=== PATIENT | female | born 1970 | race Caucasian/White ===

== ENCOUNTER 2022-06-12 10:13 | Emergency (ER) | payer MEDICAID ==
[~2022-06-12] VITALS: Ht 177.8 cm; Wt 87.2 kg
[2022-06-12 10:32] LABS: BASOPHILS # (AUTO) 0.1 10^3/uL (0.0-0.1); BASOPHILS % (AUTO) 1 % (0-10); EOSINOPHILS # (AUTO) 0.1 10^3/uL (0.0-0.3); EOSINOPHILS % (AUTO) 1 % (0-10); HEMATOCRIT 44 % (35-52); HEMOGLOBIN 14.7 g/dL (11.5-16.0); LYMPHOCYTES # (AUTO) 1.9 10^3/uL (1.0-4.0); LYMPHOCYTES % (AUTO) 26 % (12-44); MEAN CORPUSCULAR HEMOGLOBIN 32 pg (25-34); MEAN CORPUSCULAR HGB CONC 34 g/dL (32-36); MEAN CORPUSCULAR VOLUME 94 fL (80-99); MEAN PLATELET VOLUME 9.4 fL (9.0-12.2); MONOCYTES # (AUTO) 0.5 10^3/uL (0.0-1.0); MONOCYTES % (AUTO) 6 % (0-12); NEUTROPHILS # (AUTO) 4.8 10^3/uL (1.8-7.8); NEUTROPHILS % (AUTO) 66 % (42-75); PLATELET COUNT 282 10^3/uL (130-400); WHITE BLOOD COUNT 7.3 10^3/uL (4.3-11.0)
[2022-06-12] MEDS ORDERED: FAMOTIDINE 20 MG (PEPCID) TABLET PO STA (10:32)
--- NOTE | 2022-06-12 10:35 | ED Chest Pain ---
General Chief Complaint: Chest Pain Stated Complaint: CHEST PAIN Source: patient Exam Limitations: no limitations History of Present Illness Date Seen by Provider: Jun 12, 2022 Time Seen by Provider: 10:15 Initial Comments 51-year-old female with past medical history of anxiety most notably coming in due to left-sided chest pain.'s been going on for 3 days, throbbing, constant. Has never had pain like this before. Denies any cardiac history, long history, and does not smoke. 6 years ago she did have a blood clot in her left leg while on control. She has since been off control and has never had a repeat blood clot. Denies any swelling in her legs. Does have some left groin pain for the past several days as well which feels somewhat similar to when she had a blood clot but does not have the same swelling that she did have before. She had some redness to her left groin area earlier in the linear area, but she states that it has since gone. Otherwise denying any cough, shortness of breath, fever, nausea, vomiting, diarrhea, weakness, numbness, or any other concerns. Allergies and Home Medications Allergies Coded Allergies: rivaroxaban (Verified Allergy, Unknown, 06/12/22) Patient Home Medication List Home Medication List Reviewed: Yes Review of Systems Review of Systems Constitutional: No fever EENTM: No Symptoms Reported Respiratory: No Symptoms Reported Cardiovascular: See HPI Gastrointestinal: No Symptoms Reported Genitourinary: No Symptoms Reported Musculoskeletal: see HPI Skin: no symptoms reported Psychiatric/Neurological: No Symptoms Reported Endocrine: No Symptoms Reported Hematologic/Lymphatic: No Symptoms Reported All Other Systems Reviewed Negative Unless Noted: Yes Past Lxhgkfg-Xfqgtc-Rdehhd Hx Patient Social History Tobacco Use?: No Substance use?: No Alcohol Use?: No Pt feels they are or have been: No Past Medical History Surgery/Hospitalization HX: DVT femoral vein (2017), mitral valve prolapse Surgeries: No Physical Exam Vital Signs Capillary Refill : Height, Weight, BMI Height: '" Weight: lbs. oz. kg; BMI Method: General Appearance: No Apparent Distress, WD/WN HEENT: PERRL/EOMI, Normal ENT Inspection, Pharynx Normal Neck: Full Range of Motion, Normal Inspection, Non Tender, Supple Respiratory: Chest Non Tender, Lungs Clear, Normal Breath Sounds, No Accessory Muscle Use, No Respiratory Distress Cardiovascular: Regular Rate, Rhythm, No Edema, Normal Peripheral Pulses Gastrointestinal: Normal Bowel Sounds, Non Tender, Soft; No Distended, No Guarding Extremity: Normal Capillary Refill, Normal Inspection, Normal Range of Motion, Non Tender, No Calf Tenderness, No Pedal Edema Neurologic/Psychiatric: Alert, No Motor/Sensory Deficits, Normal Mood/Affect Skin: Normal Color, Warm/Dry Lymphatic: No Adenopathy Progress/Results/Core Measures Results/Orders Lab Results Laboratory Tests Test 06/12/22 10:21 Range/Units White Blood Count 7.3 4.3-11.0 10^3/uL Red Blood Count 4.63 3.80-5.11 10^6/uL Hemoglobin 14.7 11.5-16.0 g/dL Hematocrit 44 35-52 % Mean Corpuscular Volume 94 80-99 fL Mean Corpuscular Hemoglobin 32 25-34 pg Mean Corpuscular Hemoglobin Concent 34 32-36 g/dL Red Cell Distribution Width 12.6 10.0-14.5 % Platelet Count 282 130-400 10^3/uL Mean Platelet Volume 9.4 9.0-12.2 fL Immature Granulocyte % (Auto) 0 % Neutrophils (%) (Auto) 66 42-75 % Lymphocytes (%) (Auto) 26 12-44 % Monocytes (%) (Auto) 6 0-12 % Eosinophils (%) (Auto) 1 0-10 % Basophils (%) (Auto) 1 0-10 % Neutrophils # (Auto) 4.8 1.8-7.8 10^3/uL Lymphocytes # (Auto) 1.9 1.0-4.0 10^3/uL Monocytes # (Auto) 0.5 0.0-1.0 10^3/uL Eosinophils # (Auto) 0.1 0.0-0.3 10^3/uL Basophils # (Auto) 0.1 0.0-0.1 10^3/uL Immature Granulocyte # (Auto) 0.0 0.0-0.1 10^3/uL Prothrombin Time 12.6 12.2-14.7 SEC INR Comment 0.9 0.8-1.4 Activated Partial Thromboplast Time 26 24-35 SEC D-Dimer 0.72 H 0.00-0.49 UG/ML Sodium Level 138 135-145 MMOL/L Potassium Level 3.8 3.6-5.0 MMOL/L Chloride Level 104 98-107 MMOL/L Carbon Dioxide Level 24 21-32 MMOL/L Anion Gap 10 5-14 MMOL/L Blood Urea Nitrogen 12 7-18 MG/DL Creatinine 0.88 0.60-1.30 MG/DL Estimat Glomerular Filtration Rate 79 BUN/Creatinine Ratio 14 Glucose Level 121 H 70-105 MG/DL Calcium Level 9.2 8.5-10.1 MG/DL Corrected Calcium 8.5-10.1 MG/DL Magnesium Level 1.9 1.6-2.4 MG/DL Total Bilirubin 0.5 0.1-1.0 MG/DL Aspartate Amino Transf (AST/SGOT) 12 5-34 U/L Alanine Aminotransferase (ALT/SGPT) 8 0-55 U/L Alkaline Phosphatase 61 40-136 U/L Troponin I < 0.30 <0.30 NG/ML Pro-B-Type Natriuretic Peptide 25.1 <125.0 PG/ML Total Protein 7.1 6.4-8.2 GM/DL Albumin 4.6 H 3.2-4.5 GM/DL My Orders Orders - JUNE RAYMUNDO MD Cbc With Automated Diff (06/12/22 10:26) Magnesium (06/12/22 10:26) Chest 1 View Ap/Pa Only (06/12/22 10:26) Ekg Tracing (06/12/22 10:26) Comprehensive Metabolic Panel (06/12/22 10:26) Protime With Inr (06/12/22 10:26) Partial Thromboplastin Time (06/12/22 10:26) O2 (06/12/22 10:26) Monitor-Rhythm Ecg Trace Only (06/12/22 10:26) Ed Iv/Invasive Line Start (06/12/22 10:26) Fibrin Degradation Products (06/12/22 10:26) Troponin I Fs (06/12/22 10:26) Probnp Fs (06/12/22 10:26) Lidocaine 2% Viscous 15 Ml (Xylocaine Vi (06/12/22 10:45) Famotidine Tablet (Pepcid Tablet) (06/12/22 10:32) Antacid Suspension (Mylanta Suspension (06/12/22 10:45) Aspirin Chewable Tablet (Baby Aspirin Ch (06/12/22 10:45) Prochlorperazine Injection (Compazine In (06/12/22 11:00) Diphenhydramine Injection (Benadryl Inje (06/12/22 11:00) Iohexol Injection (Omnipaque 350 Mg/Ml 1 (06/12/22 11:15) Received Contrast (Hold Metformin- Contr (06/12/22 11:15) Sodium Chloride Flush (Catheter Flush Sy (06/12/22 11:15) Ns (Ivpb) (Sodium Chloride 0.9% Ivpb Bag (06/12/22 11:15) Ct Angio Chest W (R/O Pe) (06/12/22 ) Ct Angio Chest W (R/O Pe) (06/12/22 11:52) Lactated Ringers (Lr 1000 Ml Iv Solution (06/12/22 11:52) Ct Angio Chest W (R/O Pe) (06/12/22 ) Iohexol Injection (Omnipaque 350 Mg/Ml 1 (06/12/22 12:15) Received Contrast (Hold Metformin- Contr (06/12/22 12:15) Sodium Chloride Flush (Catheter Flush Sy (06/12/22 12:15) Ns (Ivpb) (Sodium Chloride 0.9% Ivpb Bag (06/12/22 12:15) Medications Given in ED Current Medications Medications Dose Ordered Sig/Lisa Route Start Time Stop Time Status Last Admin Dose Admin Al Hydrox/Mg Hydrox/Simethicone 30 ml ONCE ONCE PO 06/12/22 10:45 06/12/22 10:46 DC 06/12/22 10:38 30 ML Aspirin 324 mg ONCE ONCE PO 06/12/22 10:45 06/12/22 10:46 DC 06/12/22 10:38 324 MG Diphenhydramine HCl 12.5 mg ONCE ONCE IVP 06/12/22 11:00 06/12/22 11:01 DC 06/12/22 11:14 12.5 MG Iohexol 100 ml ONCE ONCE IV 06/12/22 11:15 06/12/22 11:16 DC 06/12/22 11:31 100 ML Iohexol 100 ml ONCE ONCE IV 06/12/22 12:15 06/12/22 12:16 DC 06/12/22 12:23 75 ML Lidocaine HCl 15 ml ONCE ONCE PO 06/12/22 10:45 06/12/22 10:46 DC 06/12/22 10:38 15 ML Prochlorperazine Edisylate 10 mg ONCE ONCE IV 06/12/22 11:00 06/12/22 11:01 DC 06/12/22 11:14 10 MG Sodium Chloride 10 ml NEEDED PRN IV 06/12/22 11:15 06/12/22 11:31 10 ML Sodium Chloride 100 ml ONCE ONCE IV 06/12/22 11:15 06/12/22 11:16 DC 06/12/22 11:31 100 ML Sodium Chloride 100 ml ONCE ONCE IV 06/12/22 12:15 06/12/22 12:16 DC 06/12/22 12:10 100 ML Progress Progress Note : Progress Note 51-year-old female presenting for chest pain. ABCs were intact and vitals are stable on presentation. Physical exam with no significant abnormalities, specifically I do not notice any signs of a DVT that she noticed earlier on her left lower extremity. I did a [id number] ultrasound as well in the left lower extremity, and her deep veins in her leg were all compressible with no signs of a DVT. IV was placed and basic labs were obtained including cardiac biomarkers. EKG ordered and interpreted by me showing no acute ischemic changes. Troponin negative, BNP normal, and labs otherwise unremarkable essentially except for an elevated D-dimer. CTA chest obtained and the timing was off missing the diagnostic accuracy for PE, but her aorta was negative for dissection. Repeat CTA obtained given this was still of the biggest concern was for a PE and she was still under the daily maximum dose for contrast. This was negative for PE. She did get IV fluids to help flush out some of the contrast. I believe she is otherwise stable for discharge with outpatient follow-up. She was sent home with strict return precautions. Initial ECG Impression Date: Jun 12, 2022 Initial ECG Impression Time: 10:22 Initial ECG Rate: 75 Initial ECG Rhythm: Normal Sinus Comment Narrow QRS, borderline left axis deviation, no significant ST changes or T wave abnormalities Diagnostic Imaging Diagonstic Imaging: Xray (chest), CT (CTA chest) Comments NAME: ASHIA HERNANDEZ Lazaro [facility] REC#: [id number] PT STATUS: REG ER : 1970 PHYSICIAN: JUNE RAYMUNDO MD ADMIT DATE: 06/12/22/ER FS Draft Date of Exam:06/12/22 CHEST 1 VIEW AP/PA ONLY INDICATION: Chest pain COMPARISON: None available. TECHNIQUE: Single radiograph of the chest dated 06/12/2022. FINDINGS: The cardiac silhouette is within normal limits in size. No significant pulmonary vascular congestion. The lungs are mildly hyperinflated, though clear of focal pulmonary opacity. No pleural effusion. No pneumothorax. No acute osseous abnormality IMPRESSION: Mild pulmonary hyperinflation without superimposed acute cardiopulmonary abnormality. Dictated on workstation # [id number] Dict: 06/12/22 1043 Trans: 06/12/22 1056 ACB [id number] Interpreted by: MALKA RUTHERFORD MD Electronically signed by: NAME: ASHIA HERNANDEZ [facility] REC#: [id number] PT STATUS: REG ER : 1970 PHYSICIAN: JUNE RAYMUNDO MD ADMIT DATE: 06/12/22/ER FS Draft Date of Exam:06/12/22 CT ANGIO CHEST W (R/O PE) INDICATION: Chest pain and dyspnea. COMPARISON: Earlier same day. TECHNIQUE: Contiguous axial images were obtained through the chest during the intravenous administration of contrast. MIP reconstructions were created and evaluated. DISCUSSION: There is no pulmonary embolus identified. Pulmonary arteries are not dilated. The thoracic aorta shows a bovine branch configuration though is otherwise normal in size. The thyroid gland is enlarged. No adenopathy. Normal heart size. No pleural or pericardial fluid. Visualized upper abdomen is unremarkable. No consolidation or pulmonary lesion. No bronchiectasis. No osseous abnormality. IMPRESSION: 1. No pulmonary embolus or other acute abnormality identified within the chest. Dictated on workstation # [id number] Dict: 06/12/22 1214 Trans: 06/12/22 1223 ACB [id number] Interpreted by: ITZ GAR MD Electronically signed by: Departure Impression Primary Impression: Chest pain Qualified Codes: R07.82 - Intercostal pain Disposition: 01 HOME, SELF-CARE Condition: Stable Departure-Patient Inst. Decision time for Depature: 12:36 Patient Instructions: Chest Pain That Is Not Caused by the Heart (DC) Add. Discharge Instructions: It does not appear like you are having a heart attack, blood clot, or anything more severe/life threatening fortunately. It's possible this is muscular in nature. Try to take ibuprofen 600 mg as needed for the pain at home. Please fo llow-up with your regular doctor if things are not improving or come back to the ER if you have worsening concerns Work/School Note: Work Release Form Date Seen in the Emergency Department: Jun 12, 2022 Return to Work: Jun 13, 2022 Restrictions: No Restrictions JUNE RAYMUNDO MD Jun 12, 2022 10:35
[2022-06-12 10:43] LABS: ALANINE AMINOTRANSFERASE 8 U/L (0-55); ALBUMIN 4.6 GM/DL (3.2-4.5); ALKALINE PHOSPHATASE 61 U/L (40-136); BILIRUBIN,TOTAL 0.5 MG/DL (0.1-1.0); BUN/CREATININE RATIO 14; CALCIUM 9.2 MG/DL (8.5-10.1); CARBON DIOXIDE 24 MMOL/L (21-32); CHLORIDE 104 MMOL/L (98-107); CREATININE SERUM 0.88 MG/DL (0.60-1.30); GFR ESTIMATED 79; GLUCOSE 121 MG/DL (70-105); MAGNESIUM 1.9 MG/DL (1.6-2.4); POTASSIUM 3.8 MMOL/L (3.6-5.0); SODIUM 138 MMOL/L (135-145); TOTAL PROTEIN 7.1 GM/DL (6.4-8.2)
[2022-06-12 10:45] LABS: INR 0.9 (0.8-1.4); PROTHROMBIN TIME PATIENT 12.6 SEC (12.2-14.7)
[2022-06-12] MEDS ORDERED: ASPIRIN 81 MG CHEW (CHILDREN'S ASA) PO ONE (10:45)
[2022-06-12] MEDS ORDERED: LIDOCAINE 2% VISCOUS 15 ML UDC PO ONE (10:45)
[2022-06-12] MEDS ORDERED: ANTACID SUSP 30 ML UDC (MYLANTA) PO ONE (10:45)
--- NOTE | 2022-06-12 10:57 | Diagnostic Imaging Report ---
INDICATION: Chest pain COMPARISON: None available. TECHNIQUE: Single radiograph of the chest dated 06/12/2022. FINDINGS: The cardiac silhouette is within normal limits in size. No significant pulmonary vascular congestion. The lungs are mildly hyperinflated, though clear of focal pulmonary opacity. No pleural effusion. No pneumothorax. No acute osseous abnormality IMPRESSION: Mild pulmonary hyperinflation without superimposed acute cardiopulmonary abnormality. Dictated by: Dictated on workstation # [id number]
[2022-06-12] MEDS ORDERED: diphenhydrAMINE 50 MG/ML INJ (BENADRYL) IVP ONE (11:00)
[2022-06-12] MEDS ORDERED: PROCHLORPERAZINE 10 MG/2ML INJ (COMPAZINE) IV ONE (11:00)
[2022-06-12] MEDS ORDERED: CATHETER FLUSH 10 ML SYR IV PRN ×2 (11:15→12:15)
[2022-06-12] MEDS ORDERED: IOHEXOL 350 MG/ML 100 ML (OMNIPAQUE 350) VIAL IV ONE ×2 (11:15→12:15)
[2022-06-12] MEDS ORDERED: HOLD METFORMIN - RECEIVED CONTRAST 20 ML VIAL IV SCH ×2 (11:15→12:15)
[2022-06-12] MEDS ORDERED: NS 100 ML (IVPB) BAG IV ONE ×2 (11:15→12:15)
--- NOTE | 2022-06-12 11:45 | Diagnostic Imaging Report ---
INDICATION: Chest pain, elevated D-dimer COMPARISON: Radiographs of the chest from the same date. TECHNIQUE: Multiple contiguous axial CT images are obtained through the chest after the administration of intravenous contrast dated 06/12/2022. Sagittal and coronal reformatted images are reviewed. This includes coronal MIP reformatted images. All CT scans use one or more of the following dose optimizing techniques: automated exposure control, MA and/or KvP adjustment based on patient size and exam type or iterative reconstruction. FINDINGS: The thyroid gland is diffusely enlarged and heterogeneous. No significant adenopathy within the chest. No aneurysm or dissection associated with the thoracic aorta. The dense contrast is noted within the aorta as opposed to the pulmonary arteries. Hounsfield units of the main pulmonary artery are less than 160. Therefore, examination is nondiagnostic for underlying pulmonary emboli. The heart is within normal limits in size. No significant pericardial effusion. No pleural effusion. The trachea is patent. No pneumothorax. The lungs are clear. Diffusely decreased density of the liver. Otherwise, the visualized upper abdomen is unremarkable. No acute osseous abnormality. IMPRESSION: No acute aortic syndrome. Nondiagnostic examination for the evaluation of pulmonary emboli given contrast bolus timing. Mild fatty infiltration of the liver. Dictated by: Dictated on workstation # [id number]
[2022-06-12] MEDS ORDERED: LACTATED RINGERS 1,000 ML IV STA (11:52)
--- NOTE | 2022-06-12 12:25 | Diagnostic Imaging Report ---
INDICATION: Chest pain and dyspnea. COMPARISON: Earlier same day. TECHNIQUE: Contiguous axial images were obtained through the chest during the intravenous administration of contrast. MIP reconstructions were created and evaluated. DISCUSSION: There is no pulmonary embolus identified. Pulmonary arteries are not dilated. The thoracic aorta shows a bovine branch configuration though is otherwise normal in size. The thyroid gland is enlarged. No adenopathy. Normal heart size. No pleural or pericardial fluid. Visualized upper abdomen is unremarkable. No consolidation or pulmonary lesion. No bronchiectasis. No osseous abnormality. IMPRESSION: 1. No pulmonary embolus or other acute abnormality identified within the chest. Dictated by: Dictated on workstation # [id number]
[2022-06-12 13:06] VITALS: BP 136/78
== END 2022-06-12 13:26 | disposition home or self-care (01) ==
LOC: ER FS 10:16
DX: R07.89 Other chest pain (principal); R79.1 Abnormal coagulation profile
CPT/HCPCS: 36415; 71045; 71275; 80053; 83735; 83880; 84484; 85025; 85379; 85610; 85730; 93005; 93041; Q9967